=== PATIENT | male | born 1990 | race Two or more races ===

== ENCOUNTER 2023-05-04 14:15 | Emergency (ER) | payer OTHER, MEDICAID, SELFPAY ==
--- NOTE | ~2023-05-04 | XR_ITS ---
EXAMINATION: XR LUMBOSACRAL SPINE CLINICAL INFORMATION: Calcaneal fracture COMPARISON: None available. TECHNIQUE: Three views of the lumbosacral spine. FINDINGS: Mild levoconvex scoliosis is evident. There is a transitional lumbosacral vertebra which demonstrates spina bifida occulta. No acute fracture or subluxation is evident. The disc spaces are preserved and the vertebral alignment is normal. The paraspinal soft tissues are normal. XR/XR lumbar spine 2-3V IMPRESSION: No acute fracture or subluxation of the lumbar spine.
--- NOTE | ~2023-05-04 | XR_ITS ---
EXAMINATION: XR HIP, LEFT AND AP PELVIS CLINICAL INFORMATION: Calcaneal fracture COMPARISON: Foot and ankle x-ray of 05/04/2023 TECHNIQUE: Frontal and frog lateral radiographs of the left hip and a frontal radiograph of the pelvis were acquired. FINDINGS: The bony pelvis, sacrum and sacroiliac joints are intact. The left hip is located. No left hip fracture or dislocation is evident. XR/XR hip LT w PEL1V IMPRESSION: Normal bony pelvis and left hip.
--- NOTE | ~2023-05-04 | XR_ITS ---
EXAMINATION: XR LEFT CALCANEUS, FOOT AND ANKLE CLINICAL INFORMATION: Fall COMPARISON: None available. TECHNIQUE: PA, lateral, and oblique views of the left foot and left ankle and 2 views of the left calcaneus were acquired. FINDINGS: There is an oblique nondisplaced fracture of the plantar surface of the left calcaneus, visualized only on the AP radiograph of the calcaneus. 3 views of the left ankle show no acute fracture or subluxation. The talar dome and ankle mortise are intact. Frontal, lateral and oblique radiographs show no evidence of fracture or subluxation of midfoot or forefoot. XR/XR calcaneus LT min 2V IMPRESSION: Transverse nondisplaced fracture of the left calcaneus.
--- NOTE | ~2023-05-04 | XR_ITS ---
EXAMINATION: XR LEFT CALCANEUS, FOOT AND ANKLE CLINICAL INFORMATION: Fall COMPARISON: None available. TECHNIQUE: PA, lateral, and oblique views of the left foot and left ankle and 2 views of the left calcaneus were acquired. FINDINGS: There is an oblique nondisplaced fracture of the plantar surface of the left calcaneus, visualized only on the AP radiograph of the calcaneus. 3 views of the left ankle show no acute fracture or subluxation. The talar dome and ankle mortise are intact. Frontal, lateral and oblique radiographs show no evidence of fracture or subluxation of midfoot or forefoot. XR/XR foot LT min 3V IMPRESSION: Transverse nondisplaced fracture of the left calcaneus.
--- NOTE | ~2023-05-04 | XR_ITS ---
EXAMINATION: XR KNEE, LEFT CLINICAL INFORMATION: Fracture of the left calcaneus COMPARISON: None available. TECHNIQUE: Four views of the left knee. FINDINGS: There is no evidence of acute fracture or subluxation of the left knee. No significant joint effusion is detected. Patella onelia is incidentally noted. XR/XR knee LT 3V IMPRESSION: 1. No acute fracture or subluxation. 2. Patella onelia.
--- NOTE | ~2023-05-04 | CT_ITS ---
Examination: CT foot LT wo IV con Indication: Reason for Exam calcaneal fracture Comparison: No pertinent prior studies are currently available for comparison. Technique: Multiple serial helical CT scan images through the left foot were obtained. Soft tissue and bony algorithms were evaluated. Coronal and sagittal reformatted images were then obtained on the technologist workstation. This CT examination was performed using dose optimization techniques as appropriate, variously including the following: *Automated exposure control *Adjustment of mA and/or kV according to patient size (this includes techniques or standardized protocols for targeted exams where dose is matched to indication/reason for exam; i.e. extremities or head) *Use of iterative reconstruction technique DLP 137 mGy cm Findings: There is a minimally displaced fracture along the posterior medial aspect of the calcaneus. The fracture line is mildly distracted by approximately 2 mm maximally along the posterior calcaneal cortex and essentially nondisplaced wall along the posterior medial cortex. Fracture does not appear to extend to the articular surface which is intact. No additional acute abnormality within the visualized ankle, midfoot, or forefoot. Alignment is essentially anatomic otherwise. There is soft tissue swelling in the region of the calcaneal fracture. CT/CT foot LT wo IV con Impression: Minimally displaced fracture along the posterior medial aspect of the calcaneus as described above. There is no evidence for intra-articular extension.
--- NOTE | ~2023-05-04 | XR_ITS ---
EXAMINATION: XR LEFT CALCANEUS, FOOT AND ANKLE CLINICAL INFORMATION: Fall COMPARISON: None available. TECHNIQUE: PA, lateral, and oblique views of the left foot and left ankle and 2 views of the left calcaneus were acquired. FINDINGS: There is an oblique nondisplaced fracture of the plantar surface of the left calcaneus, visualized only on the AP radiograph of the calcaneus. 3 views of the left ankle show no acute fracture or subluxation. The talar dome and ankle mortise are intact. Frontal, lateral and oblique radiographs show no evidence of fracture or subluxation of midfoot or forefoot. XR/XR ankle LT min 3V IMPRESSION: Transverse nondisplaced fracture of the left calcaneus.
[2023-05-04 14:17] VITALS: BP 128/63; PULSE 69; RESP 17; TEMP 37.1; O2SAT 99; BMI 26.0
--- NOTE | 2023-05-04 14:20 | ED.LOWEXIN ---
HPI - Extremity Injury (Lower) General Chief Complaint: Extremity Injury, Lower Stated Complaint: L Foot Pain S/P Injury 05/04/23 Time Seen by Provider: 05/04/23 15:00 Related Data Previous Rx's Medication Instructions Recorded oxycodone 5 mg tablet 5 mg PO Q8H PRN pain #10 tabs 05/04/23 Allergies Allergy/AdvReac Type Severity Reaction Status Date / Time No Known Allergies Allergy Verified 05/04/23 14:22 [facility] Social History Social History Advance Directives: No Advance Directives Information Provided: No Physical Exam Vital Signs: Vital Signs: Last Vital Signs Temp 98.7 F 05/04/23 14:17 Pulse 88 05/04/23 15:40 Resp 19 05/04/23 15:40 BP 164/86 H 05/04/23 15:40 Pulse Ox 100 05/04/23 15:40 O2 Del Method Room Air 05/04/23 15:40 BMI result Body Mass Index 26.0 Course Course Course Narrative: RME: 32yo M w/no sig PMHx c/o left ankle pain s/p fall at work off ladder, missed step on way down. denies head trauma or LOC. unable to ambulate after incident +L ankle with swelling and ttp >lateral aspect and calcaneous. NV intact XRs ordered Full HPI, ROS and PE to be performed by primary ED provider. Medications Administered Discontinued Medications Generic Name Dose Route Start Last Admin Trade Name Freq PRN Reason Stop Dose Admin Acetaminophen 975 mg 05/04/23 15:20 05/04/23 15:44 Acetaminophen 325 Mg Tablet PO 05/04/23 15:21 975 mg ONCE ONE Administration Fentanyl 50 mcg 05/04/23 15:20 05/04/23 15:48 Fentanyl Citrate/Pf 100 Mcg/2 Ml Vial IVPUSH 05/04/23 15:21 50 mcg ONCE ONE Administration Protocol Ibuprofen 600 mg 05/04/23 15:20 05/04/23 15:45 Ibuprofen 600 Mg Tablet PO 05/04/23 15:21 600 mg ONCE ONE Administration Discharge Plan Discharge Clinical Impression: Calcaneus fracture, left Instructions: Calcaneal Fracture (ED) Additional Instructions: You were seen emergency room after a fall. X-ray of your foot showed a calcaneus fracture is a fracture of your left heel. You were placed in a splint that she will need to keep until he follow-up with an orthopedic doctor. Please once you return home in [place] establish care with an orthopedic doctor so that you can follow-up within 10 days. If you are unable to establish care with an orthopedic doctor I recommend for you to present to the closest emergency room so that they can assess your foot. For pain you can use Tylenol 1000 mg up to 4 times a day, ibuprofen 600 mg up to 3 times a day and if needed oxycodone 5 mg for no longer than 3 days and for no longer than 4 times a day. If pain is not controlled please go immediately to the closest emergency room. Prescriptions: New oxycodone 5 mg tablet 5 mg PO Q8H PRN (Reason: pain) Qty: 10 0RF Rx Instructions: Partial Fill upon patient request.
--- NOTE | 2023-05-04 15:18 | ED_ITS ---
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 Patient reported he was at work when he missed a step and fell from a ladder for approximately 4 m. Patient reports that he landed on his feet and that since then his started having left foot pain at the level of his left heel. Patient denies LOC, had struck, shortness of breath or chest pain, no abdominal pain nausea or vomiting. On arrival patient GCS is 15, does not appear to be in respiratory distress, there is no signs of bleeding. Patient reports pain is severe. Related Data Previous Rx's Medication Instructions Recorded oxycodone 5 mg tablet 5 mg PO Q8H PRN pain #10 tabs 05/04/23 Allergies Allergy/AdvReac Type Severity Reaction Status Date / Time No Known Allergies Allergy Verified 05/04/23 14:22 Review of Systems Review of Systems: Yes all other systems are reviewed and are negative PMFSH Social History Social History Advance Directives: No Advance Directives Information Provided: No Physical Exam Vital Signs: Vital Signs: Last Vital Signs Temp 98.7 F 05/04/23 14:17 Pulse 88 05/04/23 15:40 Resp 19 05/04/23 15:40 BP 164/86 H 05/04/23 15:40 Pulse Ox 100 05/04/23 15:40 O2 Del Method Room Air 05/04/23 15:40 BMI result Body Mass Index 26.0 Const: Other: General: Alert, Not in Distress Skin: No rash, warm HEENT: Atraumatic, No Exudate or Pharyngeal Erythema Resp: Normal Breath sounds bilaterally Cardio: Regular rate and Rhythm, Normal S1, S2 ABD: Abd soft, non tender, no guarding or rebound. Normal Bowel sounds. : No cva tenderness MSK: Pulses 2+ on all 4 extremities, there is tenderness on palpation of the left heel. Ankles bilaterally not seem deformed. Toes on both feet are not deformed. There is good range of motion of the. Neuro: Alert, oriented x4, PERRL Strenght 5/5 on all extremities Sensation is preserved in both lower and upper extremities Index to nose: normal Cranial Nerves II-XII grossly intact No dysarthria, or aphasia No neglet. Visual sage are normal bilaterally Psych: Cooperative, NO SI Course Reevaluation(s) Reevaluation #1: Anthony ASCENCIO reviewed CT, nonoperative management at this time. Patient was placed in short leg splint with mild equinus. I recommended patient to follow-up with orthopedic as an outpatient, patient lives near [place] and will like to follow-up there. I recommended for him to establish care with a primary care physician so that he can be referred or an alternative to call Ortho nearby so he in the seen. Will discharge on oxycodone, Tylenol, analgesia recommendation to keep leg elevated, not weight-bearing. Patient understands and agrees with plan. Time: 17:31 Medications Administered Discontinued Medications Generic Name Dose Route Start Last Admin Trade Name Freq PRN Reason Stop Dose Admin Acetaminophen 975 mg 05/04/23 15:20 05/04/23 15:44 Acetaminophen 325 Mg Tablet PO 05/04/23 15:21 975 mg ONCE ONE Administration Fentanyl 50 mcg 05/04/23 15:20 05/04/23 15:48 Fentanyl Citrate/Pf 100 Mcg/2 Ml Vial IVPUSH 05/04/23 15:21 50 mcg ONCE ONE Administration Protocol Ibuprofen 600 mg 05/04/23 15:20 05/04/23 15:45 Ibuprofen 600 Mg Tablet PO 05/04/23 15:21 600 mg ONCE ONE Administration Medical Decision Making Consult Healthcare Provider Management of the patient was discussed with: [facility] (Anthony ASCENCIO Lynn: Recs: CT foot, Short leg cast. F/u outpatient) Discharge Plan Discharge Clinical Impression: Calcaneus fracture, left Patient Disposition: Home, Self-Care Instructions: Calcaneal Fracture (ED) Additional Instructions: You were seen emergency room after a fall. X-ray of your foot showed a calcaneus fracture is a fracture of your left heel. You were placed in a splint that she will need to keep until he follow-up with an orthopedic doctor. Please once you return home in [place] establish care with an orthopedic doctor so that you can follow-up within 10 days. If you are unable to establish care with an orthopedic doctor I recommend for you to present to the closest emergency room so that they can assess your foot. For pain you can use Tylenol 1000 mg up to 4 times a day, ibuprofen 600 mg up to 3 times a day and if needed oxycodone 5 mg for no longer than 3 days and for no longer than 4 times a day. If pain is not controlled please go immediately to the closest emergency room. Prescriptions: New oxycodone 5 mg tablet 5 mg PO Q8H PRN (Reason: pain) Qty: 10 0RF Rx Instructions: Partial Fill upon patient request.
[2023-05-04 15:40] VITALS: BP 164/86; PULSE 88; RESP 19; O2SAT 100
[2023-05-04] MEDS: Acetaminophen 325 MG TABLET 975 MG PO (15:44)
[2023-05-04] MEDS: Ibuprofen 600 MG TABLET PO (15:45)
[2023-05-04] MEDS: fentaNYL citrate/PF 100 MCG/2 ML VIAL 50 MCG IVPUSH (15:48)
--- NOTE | 2023-05-04 15:51 | PC.NURSE ---
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
--- NOTE | 2023-05-04 15:53 | PC.NURSE ---
pt medicated per SEP for 04/13 left leg/back pain- pt fell from approx 12ft now complaining of left leg pain- pt to go for repeat imaging
[2023-05-04 18:08] VITALS: BP 112/64; PULSE 96; RESP 18; TEMP 36.6; O2SAT 100
== END 2023-05-04 19:08 | disposition home or self-care (01) ==
PROVIDERS: Emergency Provider Student in an Organized Health Care Education/Training Program
DX: S92.002A Unspecified fracture of left calcaneus, initial encounter for closed fracture (principal); W11.XXXA Fall on and from ladder, initial encounter; Y93.H3 Activity, building and construction; Y92.9 Unspecified place or not applicable; Y99.0 Civilian activity done for income or pay
CPT/HCPCS: 29515; 72100; 73502; 73562; 73610; 73630; 73650; 73700; 96374; 99283; 99284; J3010